=== PATIENT | male | born 1970 | race Caucasian/White ===

== ENCOUNTER 2018-09-05 00:44 | Emergency (ER) | payer SELFPAY ==
[~2018-09-05] VITALS: Ht 172.7 cm; Wt 65.8 kg
[2018-09-05 00:48] VITALS: BP 121/64
--- NOTE | 2018-09-05 00:48 | NUR ---
PT TO ER BED 3 BIB [facility]
--- NOTE | 2018-09-05 00:50 | NUR ---
PT BIBA FOR FALL AT 711. PT IS NON COOPERATIVE, NOT RESPONDING TO QUESTIONS. PT HAS NO VISIBLE SWELLING, BRUISING, OR DEFORMITIES. SUSPECTED ETOH DUE TO ALCOHOL SMELL ON PT BREATH. ER MD TO SEE PT. SAFETY PRECAUTIONS IN PLACE, WILL CONTINUE TO MONITOR
[2018-09-05] MEDS ORDERED: diphenhydrAMINE 50 MG/ML VIAL IM ONE (01:40)
[2018-09-05] MEDS ORDERED: ZIPRASIDONE MESYLATE 20 MG/ML VIAL IM ONE (01:40)
[2018-09-05] MEDS ORDERED: WATER STERILE 10 ML MC ONE (01:55)
--- NOTE | 2018-09-05 02:00 | NUR ---
PT HAS BECOME AGITATED, NON-COOPERATIVE, YELLING PROFANITIES, PT'S FIST ARE CLINCHED. PT IS AAOX1, PT STATES THAT HE IS IN [place]. DR MARYAM MCCLURE AND SANTO TO CALM THE PT.
[2018-09-05 02:26] LABS: BASOPHILS % (AUTO) 0.4 % (0.0-2.0); EOSINOPHILS # (AUTO) 0.2 K/uL (0-0.4); EOSINOPHILS % (AUTO) 2.8 % (0.0-4.0); HEMATOCRIT 35.3 % (36-52); HEMOGLOBIN 11.4 g/dL (12.0-18.0); LYMPHOCYTES # (AUTO) 2.9 K/uL (2.0-11.5); LYMPHOCYTES % (AUTO) 46.8 % (20.5-51.1); MEAN CORPUSCULAR HEMOGLOBIN 28 pg (27-31); MEAN CORPUSCULAR HGB CONC 32 g/dL (33-37); MEAN CORPUSCULAR VOLUME 87.2 fL (80-94); MONOCYTES # (AUTO) 0.9 K/uL (0.8-1.0); MONOCYTES % (AUTO) 14.2 % (1.7-9.3); NEUTROPHILS # (AUTO) 2.2 K/uL (1.8-7.7); NEUTROPHILS % (AUTO) 35.8 % (42.2-75.2); PLATELET COUNT (AUTO) 217 K/uL (140-450); RED BLOOD CELL COUNT(AUTO) 4.04 MIL/uL (4.20-6.10); RED CELL DISTRIBUTION WIDTH 14.9 % (11.6-13.7); WHITE BLOOD COUNT (AUTO) 6.3 K/uL (4.8-10.8)
[2018-09-05 02:48] LABS: ANION GAP 11.4 (8-16); CARBON DIOXIDE 28.4 mmol/L (21-32); CHLORIDE 104 mmol/L (98-107); CREATININE 0.9 mg/dL (0.7-1.3); GFR ARICAN-AMERICAN 117 mL/min (>90); GLUCOSE 115 mg/dL (74-106); POTASSIUM 3.8 mmol/L (3.5-5.1); SODIUM SERUM 140 mmol/L (136-145); UREA NITROGEN, BLOOD 18 mg/dL (7-18)
[2018-09-05 02:53] LABS: ALBUMIN 3.2 g/dL (3.4-5.0); ASPARTATE AMINOTRANSFERASE 24 U/L (15-37); TOTAL BILIRUBIN 0.3 mg/dL (0.0-1.0)
[2018-09-05 02:54] LABS: ACETAMINOPHEN < 0.5 ug/ml (10-30); SALICYLATE < 2.8 mg/dL (2.8-20.0)
--- NOTE | 2018-09-05 03:20 | NUR ---
PT WENT TO CT AT THIS TIME.
--- NOTE | 2018-09-05 03:50 | NUR ---
PT IS RESTING IN BED AT THIS TIME. PT IS CALM AND NO LONGER MUMBLING. SIDE RAILS UP X2, BED IN LOWEST POSITION. WILL CONTINUE TO MONITOR.
[2018-09-05 04:11] LABS: APPEARANCE,URINE CLEAR (CLEAR); BILIRUBIN,URINE NEGATIVE (NEGATIVE); BLOOD, URINE NEGATIVE (NEGATIVE); COLOR,URINE YELLOW (YELLOW); LEUKOCYTE ESTERASE ,URINE NEGATIVE (NEGATIVE); NITRITE, URINE NEGATIVE (NEGATIVE); PH,URINE 6.5 (5.0-9.0); UGLUCOSE NEGATIVE (NEGATIVE)
[2018-09-05 05:06] LABS: BARBITURATE, URINE NEG. ng/ml (NEG <=200); BENZODIAZEPINE, URINE NEG. ng/mL (NEG <=200); CANNABINOID, URINE NEG. ng/mL (NEG <=50); COCAINE, URINE NEG. ng/mL (NEG <=300); OPIATE, URINE NEG. ng/mL (NEG <=2000); PHENCYCLIDINE SCREEN,URINE NEG. ng/mL (NEG <=25)
--- NOTE | 2018-09-05 05:19 | NUR ---
PT IS SLEEPING, TRIED TO WAKE UP PT FOR PSYCH EVAL, PT MUMBLED, INCOHERENT. VSS. WILL CONTINUE TO MONITOR.
--- NOTE | 2018-09-05 07:11 | NUR ---
pt. resting comfortably in bed, rr even and unlabored. vss. Will continue to monitor.
--- NOTE | 2018-09-05 08:30 | NUR ---
PT. RESTING , SLEEPING IN BED, RR EVEN AND UNLABORED. VSS. HOB ELEVATED. WILL CONTINUE TO MONITOR.
--- NOTE | 2018-09-05 09:30 | NUR ---
PT. RESTING COMFORTABLY IN BED, VSS. BREAKFAST TRAY PROVIDED. WILL CONTINUE TO MONITOR.
[2018-09-05 11:09] VITALS: BP 130/58
--- NOTE | 2018-09-05 11:10 | NUR ---
Patient discharged with v/s stable. Written and verbal after care instructions given and explained. Patient verbalized understanding. Ambulatory with steady gait. All questions addressed prior to discharge. Advised to follow up with PMD.
== END 2018-09-05 09:30 | disposition home or self-care (01) ==
LOC: MED 00:44
DX: F29 Unspecified psychosis not due to a substance or known physiological condition (principal); F91.9 Conduct disorder, unspecified
CPT/HCPCS: 36415; 70450; 71045; 80053; 80305; 81003; 84484; 85025; 93005; 96372; 99284; G0480; G0482; J1200; J3486; Q0092